=== PATIENT | female | born 1965 | race Hispanic/Latino ===

== ENCOUNTER 2016-10-26 17:45 | Emergency (ER) | payer OTHER ==
--- NOTE | 2016-10-26 17:55 | ED PDOC ---
Arrival/HPI - General Time Seen by Provider: 10/26/16 17:55 Historian: Patient - History of Present Illness Narrative History of Present Illness (Text): 10/26/16 17:55 This 51 yo female presents to this ED c/o left eye tearing, photophobia, bluured vision, FB sensation since last night. Patient stated she woke up with this symptoms. She irrigated left eye, which it improved symptoms. This morning, patient noted eye discharge left eye, with same symptoms from last night. Patient went to urgent care center, who referred patient to ED. Patient admits taking Prednisone for over a year. Currently taking Prednisone 5 mg PO QD. Patient wears glasses. Denies eye trauma, puncture, irritant exposure, diplopia , redness, contact lens use, or abnormal gait. Time/Duration: Other (see HPI) Context: Home Past Medical History - Provider Review Nursing Documentation Reviewed: Yes Family/Social History - Physician Review Nursing Documentation Reviewed: Yes Family/Social History: No Known Family HX Allergies/Home Meds Allergies/Adverse Reactions: Allergies aspirin Adverse Reaction (Verified 10/26/16 17:58) NAUSEA Home Medications: Home Meds Medication Instructions Recorded Confirmed Albuterol/Ipratropium [Combivent 0 puff IH DAILY 10/26/16 10/26/16 Respimat] Alprazolam [Xanax] 0.5 mg PO TID 10/26/16 10/26/16 Cyclobenzaprine HCl [Amrix] 15 mg PO 10/26/16 Meloxicam [Mobic] 7.5 mg PO 10/26/16 Mometasone Furoate [Nasonex] 1 spray IH HS 10/26/16 10/26/16 Mometasone [Asmanex Twisthaler 220 2 puff IH HS 10/26/16 10/26/16 MCG] Montelukast [Singulair] 10 mg PO HS 10/26/16 10/26/16 Prednisolone [Millipred] 5 mg PO BID 10/26/16 10/26/16 Pregabalin [Lyrica] 50 mg PO TID 10/26/16 10/26/16 Ranitidine HCl [Zantac] 150 mg PO BID 10/26/16 10/26/16 Physical Exam Vital Signs Temp Pulse Resp BP Pulse Ox 10/26/16 17:58 98.0 F 94 H 16 105/75 97 10/26/16 17:55 98.0 F 94 H 16 105/75 97 Medical Decision Making ED Course and Treatment: 10/26/16 18:[address] Gayle Business Line Manager who recommended eye patch, ophthalmic ointment, and to f/u his office tomorrow morning at 10 am. Re-evaluation Time: 18:52 Reassessment Condition: Re-examined, Improved Disposition/Present on Arrival - Present on Arrival Any Indicators Present on Arrival: No History of DVT/PE: No History of Uncontrolled Diabetes: No Urinary Catheter: No History of Decub. Ulcer: No - Disposition Have Diagnosis and Disposition been Completed?: Yes Diagnosis: Sensation of foreign body in eye Disposition: HOME/ ROUTINE Disposition Time: 18:52 Patient Plan: Discharge Condition: GOOD Discharge Instructions (ExitCare): Eye Foreign Body (ED) Additional Instructions: Dr. Gayle is expecting to see you tomorrow at 10 am. Ypu may need to arrive few minutes before. Take medication as instructed. Return to emergency if symptoms worsen. Prescriptions: oxyCODONE/Acetaminophen [Percocet 5/325 mg Tab] 1 ea PO TID PRN #5 tab PRN Reason: Pain, Severe (8-10) Referrals: Alessio Gayle MD [Staff Provider] - Follow up with primary Forms: WORK NOTE
[2016-10-26 17:56] VITALS: BP 105/75; PULSE 94; RESP 16; TEMP 98; BMI 39.1
[2016-10-26] MEDS ORDERED: Erythromycin 0.5% Ophth Oint 1 APPLIC/3.5 G OS ONE (18:43)
[2016-10-26 19:10] VITALS: O2SAT 99
== END 2016-10-26 19:10 | disposition home or self-care (01) ==
LOC: ED 17:45
DX: H57.8 Other specified disorders of eye and adnexa (principal)